=== PATIENT | male | born 1990 | race Caucasian/White ===

== ENCOUNTER 2022-09-04 11:41 | Emergency (ER) | payer OTHER ==
[~2022-09-04] VITALS: Ht 177.8 cm; Wt 84.0 kg
[2022-09-04 11:45] VITALS: BP 140/91
[2022-09-04] MEDS ORDERED: NAPR-681 MT (18:37)
== END 2022-09-04 19:03 | disposition home or self-care (01) ==
LOC: ER 11:41
DX: K40.90 Unilateral inguinal hernia, without obstruction or gangrene, not specified as recurrent (principal); N50.3 Cyst of epididymis
CPT/HCPCS: 76870; 93976; 99284